=== PATIENT | male | born 1970 ===

== ENCOUNTER 2019-01-03 10:02 | Inpatient (IN) | payer OTHER ==
[~2019-01-03] VITALS: Ht 172.7 cm; Wt 82.1 kg
[~2019-01-03 10:02] MED LIST: AVAPRO150 MG
== END 2019-01-14 09:25 | disposition home or self-care (01) | DRG 343 ==
LOC: SURH 01-11 08:00 → O/R 01-13 06:45 → SURH 01-13 08:00 → SURG 01-13 11:16 → SURH 01-13 12:30 → SURG 01-14 09:25
PROVIDERS: ADMIT Specialist
PROC: 0DTJ0ZZ Resection of Appendix, Open Approach (ICD-10-PCS; principal; 2019-01-13 12:30)
DX: K38.1 Appendicular concretions (principal); I10 Essential (primary) hypertension

== ENCOUNTER → 2021-06-26 | Outpatient (CLI) | payer OTHER | END | disposition home or self-care (01) | LOC: SONOGRAMA 09:11 | PROVIDERS: ATTEND Specialist | DX: E03.8 Other specified hypothyroidism (principal); M54.2 Cervicalgia ==

== ENCOUNTER 2022-03-11 13:52 | Outpatient (CLI) | payer OTHER | END 2022-03-11 13:59 | disposition home or self-care (01) | LOC: SONOGRAMA 13:52 | PROVIDERS: ATTEND General Practice | DX: E04.1 Nontoxic single thyroid nodule (principal) ==

== ENCOUNTER 2024-03-22 10:30 | Outpatient (CLI) | payer OTHER | END 2024-03-22 10:47 | disposition home or self-care (01) | LOC: SONOGRAMA 10:30 | PROVIDERS: ATTEND Physical Medicine & Rehabilitation | DX: M77.12 Lateral epicondylitis, left elbow (principal) ==